=== PATIENT | male | born 1945 | race Caucasian/White ===

== ENCOUNTER 2017-07-24 20:14 | Outpatient (CLI) | payer OTHER | END 2017-07-24 20:15 | disposition short-term general hospital (02) | LOC: EMS 20:14 | PROVIDERS: ATTEND Surgery | DX: R41.0 Disorientation, unspecified (principal) | CPT/HCPCS: A0170; A0425; A0427 ==

== ENCOUNTER 2019-05-18 16:45 | Outpatient (CLI) | payer MEDICARE, OTHER ==
--- NOTE | 2019-05-19 13:07 | XRAY Report ---
Reason: DISORDER OF BONE Procedure Date: 05/18/2019 Accession Number: [id number] / [id number] Procedure: XR - Clavicle LT CPT Code: FULL RESULT: EXAM: LEFT CLAVICLE RADIOGRAPHY EXAM DATE: 05/18/2019 05:09 PM. CLINICAL HISTORY: DISORDER OF BONE. COMPARISON: None. TECHNIQUE: 2 views. FINDINGS: Bones: Normal. No fracture or bone lesion. Joints: The acromioclavicular and sternoclavicular joints are normal. No subluxation. Soft Tissues: Normal. No soft tissue swelling. IMPRESSION: Normal clavicle radiography. [facility]
== END 2019-05-18 18:00 ==
LOC: DI 16:45
PROVIDERS: ATTEND Family Medicine
DX: M89.9 Disorder of bone, unspecified (principal)

== ENCOUNTER 2021-11-11 12:15 | Outpatient (CLI) | payer MEDICARE, OTHER ==
--- NOTE | 2021-11-11 14:40 | XRAY Report ---
PROCEDURE: Shoulder 3 View RT INDICATIONS: PAIN IN RT SHOULDER TECHNIQUE: 3 views of the shoulder were acquired. COMPARISON: None. FINDINGS: FINDINGS: BONES: The joint spaces are maintained. Small ossific density adjacent to the inferior glenoid ri m. The remaining visualized osseous structures appear maintained. Mild osteophytosis about the AC alvaro nt. SOFT TISSUES: No focal abnormality or appreciable pneumothorax. IMPRESSION: 1.Small ossific density adjacent to the inferior glenoid rim, which may reflect intra-articular body or displaced fracture fragment. Reviewed by: Branden Randall MD on 11/11/2021 2:39 PM PST Approved by: Branden Randall MD on 11/11/2021 2:39 PM [facility] [place] Station ID: [id number]
== END 2021-11-11 12:16 | disposition home or self-care (01) ==
LOC: DI.S 12:15
PROVIDERS: ATTEND Physician Assistant
DX: M25.511 Pain in right shoulder (principal); R93.6 Abnormal findings on diagnostic imaging of limbs

== ENCOUNTER 2021-11-11 12:17 | Outpatient (CLI) | payer MEDICARE, OTHER ==
--- NOTE | 2021-11-12 10:06 | XRAY Report ---
PROCEDURE: Ribs w/PA Chest RT INDICATIONS: PLEURODYNIA TECHNIQUE: 3 views of the right ribs were acquired, along with a single view chest. COMPARISON: None. FINDINGS: Surgical changes and devices: None. Bones and chest wall: No fractures or dislocations. No suspicious bony lesions. A small ossicle ad jacent to the inferior glenoid rim. Overlying soft tissues appear unremarkable. Lungs and pleura: No pleural effusions or pneumothorax. Lungs appear clear. Mediastinum: Mediastinal contours appear normal. Heart size is normal. IMPRESSION: 1. No displaced rib fractures. 2. A small ossicle adjacent to the inferior glenoid rim. Please see separate right shoulder x-ray rep ort. Reviewed by: Nel Ernandez MD on 11/12/2021 10:05 AM [facility] Approved by: Nel Ernandez MD on 11/12/2021 10:05 AM [facility] Station ID: [id number]
== END 2021-11-11 12:18 | disposition home or self-care (01) ==
LOC: DI.S 12:17
PROVIDERS: ATTEND Physician Assistant
DX: R07.81 Pleurodynia (principal); R93.6 Abnormal findings on diagnostic imaging of limbs; M25.511 Pain in right shoulder

== ENCOUNTER 2021-11-25 11:29 | Outpatient (CLI) | payer MEDICARE, OTHER ==
[2021-11-25 15:33] LABS: CHOL/HDL RATIO 4.2 (<5.0); CHOLESTEROL 207 mg/dL; HDL CHOLESTEROL 49 mg/dL; LDL CHOLESTEROL,CALCULATED 138 mg/dL; LDL/HDL RATIO 2.8 (<3.6); TRIGLYCERIDES 101 mg/dL; VLDL CHOLESTEROL 20 mg/dL
== END 2021-11-25 11:30 | disposition home or self-care (01) ==
LOC: LAB.S 11:29
PROVIDERS: ATTEND Internal Medicine Cardiovascular Disease
DX: I48.92 Unspecified atrial flutter (principal); I48.0 Paroxysmal atrial fibrillation
CPT/HCPCS: 36415; 80061; 83721; 84443

== ENCOUNTER 2021-11-26 09:53 | Outpatient (CLI) | payer MEDICARE, OTHER ==
--- NOTE | 2021-11-26 12:19 | MRI Report ---
PROCEDURE: Shoulder RT W/O INDICATIONS: TRAUMATIC TEAR OF RIGHT ROTATOR CUFF TECHNIQUE: Noncontrast oblique coronal T2 fast spin echo with fat saturation, oblique sagittal T1 spin echo and T2 fast spin echo with fat saturation, axial T1 spin echo and T2 fast spin echo with fat saturation t hrough the shoulder. COMPARISON: None. Findings: Supraspinatus: Moderate tendinopathy with small partial articular surface and interstitial tears. Infraspinatus: Mild tendinopathy with small partial articular surface tear. Subscapularis: Moderate tendinopathy with full-thickness tear with retraction by approximately 2.9 cm . Teres minor: No evidence of tear. Labrum: No evidence of tear. Biceps tendon: No evidence of subluxation or tear. Acromioclavicular joint: Mild to moderate arthrosis with T2 hyperintense signal within the articulat ion. Muscle: No significant atrophy. Bones: T2 hyperintense/T1 hypointense signal within the humeral head with flattening, compatible Hill -Sachs deformity. Small focus of subchondral edema. Miscellaneous: Small to moderate glenohumeral joint effusion. Trace subacromial/subdeltoid bursal fluid. No intra-articular bodies. Intact coracoclavicular ligament. IMPRESSION: 1. Subscapular tendinopathy with full-thickness tear and retraction as detailed above. 2. Mild infraspinatus tendinopathy with small partial articular surface tear. 3. Moderate supraspinatus tendinopathy with small partial articular surface and interstitial tears. 4. Mild to moderate AC joint degeneration. 5. Small to moderate glenohumeral joint effusion. 6. Mild subacromial/subdeltoid bursitis. Reviewed by: Branden Randall MD on 11/26/2021 12:17 PM [facility] Approved by: Branden Randall MD on 11/26/2021 12:17 PM PST Station ID: [id number]
== END 2021-11-26 09:54 | disposition home or self-care (01) ==
LOC: DI 09:53
PROVIDERS: ATTEND Orthopaedic Surgery
DX: S46.011A Strain of muscle(s) and tendon(s) of the rotator cuff of right shoulder, initial encounter (principal); M19.011 Primary osteoarthritis, right shoulder; M75.51 Bursitis of right shoulder; M25.411 Effusion, right shoulder

== ENCOUNTER 2022-01-27 11:09 | Outpatient (CLI) | payer MEDICARE, OTHER ==
--- NOTE | 2022-01-27 12:17 | SLEEP CARE CONSULTATION ---
Information from patient questionnaire entered by Jimi Hobbs MA. I have reviewed and concur with the information entered by Jimi Hobbs MA. This document represents the service I personally performed and the decisions made by , Anali Serrato ARNP. History of Present Illness Service Date and Time: 01/27/2022 1109 Reason for Visit: New patient (ONSET 07/2021, NO PRIORS, ) Accompanied by: Spouse Chief Complaint: reports: Unrefreshed sleep (sometimes), Snoring, Excessive daytime sleepiness, Observed pauses in breathing, Frequent awakenings at night Date of Onset: APROX 1 YEAR Usual bedtime: 9 PM Time it takes to fall asleep: 10 MINUTES Snores at night: Yes Observed to quit breathing while asleep: Yes (possible) Sleeps alone due to snoring: No Number of times waking at night: 4 times Reasons for waking at night: reports: Pain (right shoulder since Nov 10), Other (pain in shoulder) Toss, Turn, or Twitch while sleeping: Yes Recalls having dreams: Yes (rarely) Usually gets out of bed at: 0900 avg - varies Feels refreshed in the morning: Yes (sometimes) Morning headache: No Sleepy or fatigued during the day: Yes (will stay awake if engaged mostly) Ever fallen asleep while driving: No Takes day naps: Yes (1-2 naps, daily; last 2-3 hours) Dreams during day naps: No Prior sleep studies: No Additional HPI information: I had the pleasure of seeing ADORE IYER today regarding the possibility of him having a sleep disorder. His current complaints are snoring, observed pauses in breathing, excessive daytime sleepiness, frequent night awakenings and unrefreshed sleep. The patient tells me that he normally goes to bed around 9 pm, and it takes him approximately 10 minutes to fall asleep. He has been told that he snores loudly and irregularly at night. He has been observed to stop breathing in his sleep. His bed partner can still sleep in the same bed. He can recall waking up on the average of 4 times during the night. Most of the time he wakes up because of right shoulder pain and bathroom. He has not awakened for his own snoring, choking, and having to gasp for air. There is a lot of tossing and turning in his sleep. Generally he can recall having dreams. He usually wakes up at 0900 and feels refreshed sometimes and other times he does not. He usually does not have a morning headache. During the day he complains of feeling sleepy and fatigued. He has never fallen asleep while driving nor has any accident due to sleepiness. He usually naps for about 2-3 hours 1-2 times a day. If he naps, upon falling asleep during the day he denies having vivid dreams. There is no somniloquy (sleep talking) or somnambulism (sleep walking). He has never experienced sleep paralysis, cataplexy, or symptoms of restless leg syndrome. He reports having impaired concentration during the day. - Parasomnia Symptoms Ever been unable to move upon waking from sleep: No Walks in sleep: No Talks in sleep: No Ever acted out dreams in sleep: No Ever felt weak in the knees when startled or emotional: No Bothered by creepy, crawly, restless sensations in legs: No Problems with memory or concentration: Yes (sometimes) Subjective Initial [place] Sleepiness Scale score: 8 (01/2022) Past Medical History Past Medical History: reports: Stroke (2016), Arrythmia (Atrial Fibrillation since 2014), Anxiety, Other (Right shoulder injury - torn rotator cuff, surgery [facility] February 11) Social History The patient's occupation is a RETIRED 2019. Patient is and lives in [place]. Have you smoked in the past 12 months: No Alcohol use: No Caffeine use: No Family History Family history of sleep disordered breathing: Yes Family Hx Sleep Apnea: Father: Snoring, Sleep apnea - Untreated Allergies and Home Medications Known drug allergies: No Drug allergies reviewed: Yes (NKDA) Home medication list reviewed: Yes Allergy and home medication list: Mediations: Amiodarone Pravastatin Eliquis Metoprolol Tylenol, prn pain Review of Systems Cardiovascular: reports: irregular heart rate or pulse (2 electroversions due to Afib) Neurological: reports: other (hypervigilant). denies: head trauma Ear/Nose/Throat: reports: nasal congestion (a little), dry mouth/throat (mouth breather), hoarseness, injury to nose (nose broken as a young adult) Endocrine: reports: too hot or cold (cold) Musculoskeletal: reports: back pain, muscle pain or cramping, other (torn rotator cuff) Immunologic: reports: allergies to food or environment (general allergies, seasonal to pollen) Physical Exam Vital signs obtained and entered by: LINDSAY BROUSSARD Blood Pressure: 145/78 (pulse 56, resp 18, left, ) Cuff size: wrist Heart Rate: 84 O2 Saturation: 98 (paper mask) Height: 6 ft 1.5 in Weight: 184 lb (with clothes and shoes) Body Mass Index: 23.9 BMI Classification: Healthy weight Neck circumference: 15 (inches) Mouth and throat: normal Soft palate: long Hard palate: normal Uvula: normal Uvula visualization: 100% Mallampati Class I Tongue: enlarged in size with teeth ramsay on lateral edges Tonsils: absent bilaterally Neck: normal w/o lymphadenopathy or thyromegaly Heart: regular rate and rhythm Lungs: clear bilaterally Impression and Plan 1. Suspected Obstructive Sleep Apnea-Hypopnea Syndrome, as suggested by a history of loud and irregular snoring, observed cessation of breath while asleep, unrefreshed sleep, cognitive impairment, and excessive daytime sleepiness. Narrow oropharynx and obesity are common predisposing factors for obstructive sleep apnea-hypopnea syndrome. I recommend proceeding to polysomnography to confirm the diagnosis and to assess severity. If the patient has significant sleep disordered breathing, a manual CPAP titration study will also be performed to find the optimal treatment pressure. I informed the patient of what the sleep studies involve and after some discussion, obtained agreement to proceed. The pathophysiology of obstructive sleep apnea-hypopnea syndrome was discussed with the patient and health risks of cardiovascular and cerebrovascular disease if not treated. Risks of drowsy driving discussed in detail and patient advised to avoid long distance driving and to tack puller machine at the first sign of drowsiness. Patient agreed to plan. Patient has shoulder surgery scheduled for Feb 11 2021. We will try to get t he sleep study done prior to this because he will have to sleep on a wedge (head elevated) and be limited by a shoulder immobilizer for several weeks after surgery which may affect his sleep study. * Schedule polysomnography +- manual CPAP titration study and return in 1-2 weeks after the study to discuss results. * Avoid long distance driving or driving when feeling sleepy. * Avoid alcohol, sedative and muscle relaxant around bedtime. * Review instructions provided by trained office staff on how to prepare for the sleep study. * Return for follow-up after sleep study completed. Counseling Topics: Weight control Visit Type: In Office Other Participants: Spouse/Significant Other Time Spent with Patient (minutes): 34 Provider Statement: I spent 100% of the Face to Face Visit with the patient with greater than 50% spent counseling the patient and coordination of care.
[2022-01-27 12:18] VITALS: BP 145/78
== END 2022-01-27 11:10 | disposition home or self-care (01) ==
LOC: SC 11:09
PROVIDERS: ATTEND Nurse Practitioner Family
DX: G47.10 Hypersomnia, unspecified (principal); R06.81 Apnea, not elsewhere classified; G47.8 Other sleep disorders; R41.89 Other symptoms and signs involving cognitive functions and awareness
CPT/HCPCS: 99203; G0463; 99212

== ENCOUNTER 2022-02-07 19:14 | Outpatient (CLI) | payer MEDICARE, OTHER | END 2022-02-07 19:15 | disposition home or self-care (01) | LOC: SC 19:14 | PROVIDERS: ATTEND Nurse Practitioner Family | DX: G47.33 Obstructive sleep apnea (adult) (pediatric) (principal); G47.61 Periodic limb movement disorder | CPT/HCPCS: 95810 ==

== ENCOUNTER 2022-02-20 15:58 | Outpatient (CLI) | payer MEDICARE, OTHER ==
[2022-02-20 15:50] VITALS: BP 120/60
--- NOTE | 2022-02-20 15:50 | SLEEP CARE CONSULTATION ---
Information from patient questionnaire entered by Jimi Hobbs MA. I have reviewed and concur with the information entered by Jimi Hobbs MA. This document represents the service I personally performed and the decisions made by , Anali Serrato ARNP. History of Present Illness Service Date and Time: 02/20/2022 1540 Accompanied by: Spouse (Na) Initial [place] Sleepiness Scale score: 8 (01/2022) Current [place] Sleepiness Scale score: 5 Additional HPI information: ADORE IYER returns via video telehealth visit for follow up and results of the recently performed polysomnography. I explained the pathophysiology behind obstructive sleep apnea. We then spent quite a bit of time discussing different treatment options. For mild obstructive sleep apnea, surgery and oral appliance are alternatives to nasal CPAP therapy but in moderate or severe cases, nasal CPAP is the most effective and reliable treatment. Because apnea is primarily in supine position, then positional management therapy could be effective. Methods discussed such as positioning with pillows to prevent supine sleep. I reviewed the impact of weight changes on sleep apnea and strongly recommended losing weight. After some discussion, the patient opted to go with the nasal CPAP therapy. Nasal autoCPAP set at 4-15 cmH20 will be ordered with rationale explained. A manual titration study will be ordered if unable to find optimal pressure with office adjustments. I explained how CPAP machine works and what to expect when using the machine. Using CPAP every night in order to get used to it was emphasized. Patient advised to put CPAP mask on before getting into bed so as not to fall asleep without CPAP. To assist acclimation to CPAP use, it could also be used for a short time during day while reading or watching TV. The patient was instructed to call the CPAP supplier to discuss any mechanical problem that may occur. If the mask given is uncomfortable or is difficult to keep on through the night even with adjustment, contact the CPAP supplier as many will replace with another mask style if notified before 30 days. If snoring or perceives is not getting enough air or too much air from the machine, notify this office. Patient does not drink alcohol. Patient was cautioned about risks of drowsy driving until sleepiness symptoms resolve. Sleep Study - Results Type of Sleep Study: Polysomnography (F/U POLY, 02/07/2022 [facility],) Prior sleep studies: No Polysomnography/Home Sleep Study results: IMPRESSION: The quality of the study is good. The patient had slightly reduced sleep efficiency due to frequent awakenings throughout the night. The sleep architecture was abnormal for sleep fragmentation and reduced amount of time spent in slow wave sleep (N3). Respiratory monitoring showed mild obstructive sleep apnea-hypopnea (AHI = 14.6) associated with frequent arousals, oxyhemoglobin desaturation and mild hypoxia (radha oxygen saturation of 82%). The patient only slept supine during this study (supine AHI = 14.6; non- supine = 0.00). Snore was light to moderate in intensity. There was moderate periodic leg movement of sleep contributing to the sleep fragmentation. Cardiac rhythm was normal sinus rhythm without significant arrhythmia. No abnormal behavior (parasomnia) observed during the night. Allergies and Home Medications Home medication list reviewed: Yes (no changes) Review of Systems Review of systems same as previous: Yes (February 11, surg repair of right rotator cuff) Physical Exam Vital signs obtained and entered by: Moshe HOBBS CMA AASAMRA Blood Pressure: 120/60 (per pt report) Height: 6 ft 1.5 in Weight: 185 lb Body Mass Index: 24.0 BMI Classification: Healthy weight Impression and Plan 1. Obstructive Sleep Apnea-Hypopnea Syndrome, moderate, with lowest oxygen saturation of 82%. Obviously this is the cause of the patients symptoms of unrefreshed sleep, and excessive daytime sleepiness. Positive pressure therapy could benefit cerebrovascular disease (stroke), anxiety and arrhythmia. As mentioned above, the patient will be started on nasal autoCPAP therapy with pressure set at 4-15 cmH2O. Compliance guidelines also reviewed. A copy of compliance guidelines will be given for reference at check out. 2. Periodic limb movement, moderate, that did contribute to fragmentation of patients sleep. Periodic limb movement of sleep (PLMS) is characterized by episodes of repetitive limb movements that occur during sleep and usually involve the lower limbs. The etiology is unknown but can be associated with restless leg syndrome (RLS), a low serum ferritin level, neuropathy, spinal cord diseases, kidney disease, rheumatological disorders, narcolepsy, obstructive sleep apnea, and REM sleep behavior disorder. Caffeine can also aggravate PLMS and should be avoided. Sleep hygiene methods can also improve sleep as well as lifestyle changes such as regular exercise. Patient was advised that no treatment is needed at this time. If symptoms increase, then further evaluation is indicated. * Nasal auto CPAP therapy, pressure at 4-15 cm H2O. * Attempt to lose weight. * Avoid alcohol consumption near bedtime. * Avoid supine sleep until using CPAP. * The patient is again cautioned about driving until sleepiness completely resolves. * Return one month after CPAP obtained. I will assess response to therapy and compliance at that time. Counseling Topics: Weight loss health impact Visit Type: Telehealth Video ([phone] HOME CALL 1520,) Video Type: Doximity Patient Location: Home Other Participants: Spouse/Significant Other (Na) Location of Provider: Office Patient agrees and consents to this telehealth visit type: Yes Patient agrees to have their insurance billed: Yes Time Spent with Patient (minutes): 20 Provider Statement: I spent 100% of the Telehealth Video Call with the patient with greater than 50% spent counseling the patient and coordination of care.
== END 2022-02-20 15:59 | disposition home or self-care (01) ==
LOC: SC 15:58
PROVIDERS: ATTEND Nurse Practitioner Family
DX: G47.33 Obstructive sleep apnea (adult) (pediatric) (principal); G47.61 Periodic limb movement disorder

== ENCOUNTER 2022-05-08 13:47 | Outpatient (CLI) | payer MEDICARE, OTHER ==
[2022-05-08 14:26] VITALS: BP 128/79
--- NOTE | 2022-05-08 14:26 | SLEEP CARE CONSULTATION ---
Information from patient questionnaire entered by Jimi Hobbs MA. I have reviewed and concur with the information entered by Jimi Hobbs MA. This document represents the service I personally performed and the decisions made by , Anali Serrato ARNP. History of Present Illness Service Date and Time: 05/08/2022 1347 Previous diagnosis: Mild, Obstructive Sleep Apnea-Hypopnea Syndrome AHI: 14.6 Reason for follow up: three month (LAST SEEN 02/2022, ZIGGY, DOMINGUEZ 03/13/2022, ) Accompanied by: Spouse Equipment type: CPAP Equipment obtained from: [employer] (got initial supplies) Mask style: Nasal Mask brand: Resmed (Airfit [id number]) Backup mask available: Yes (will keep old mask when replaced) Prior sleep studies: No Type of Sleep Study: Polysomnography (F/U POLY, 02/07/2022 [facility],) HPI additional information: ADORE IYER was diagnosed to have mild, AHI 14.6, obstructive sleep apnea- hypopnea syndrome and returned with spouse today for CPAP therapy first compliance three month follow-up. Sleep Study - Results Type of Sleep Study: Polysomnography (F/U POLY, 02/07/2022 [facility],) Prior sleep studies: No CPAP Compliance Data - Data Reviewed with Patient Average duration of nightly device use: 2 hours 16 minutes Compliance rate %: 3 (30 days; 10/09 days used) Current pressure setting (cmH2O): 4-15 (median 6.7, avg 10.4, max 11.1) Average residual AHI: 4.6 Central apnea: 2.4 Obstructive apnea: 1.2 Hypopnea: .8 Average large leak: 1.4 Subjective Missed days of use due to: reports: mask issues (full face not comfortable; waiting for chin strap) Patient concerns: reports: mask discomfort, mask leak noise. denies: a erophagia, air blowing in eyes, condensation in mask/hose, nasal congestion, dry mouth, nose, throat, epistaxis, other Observed to snore while using device: No Current pressure setting perceived as: comfortable On therapy, patient: reports: other (feels like it is waking him up at night) Initial [place] Sleepiness Scale score: 8 (01/2022) Current [place] Sleepiness Scale score: 5 (05/08/2022) Allergies and Home Medications Home medication list reviewed: Yes (no changes) Review of Systems Review of systems same as previous: Yes (no changes) Physical Exam Vital signs obtained and entered by: LINDSAY BROUSSARD Blood Pressure: 128/79 (LEFT) Cuff size: wrist Heart Rate: 49 O2 Saturation: 98 (PAPER MASK) Height: 6 ft 1.5 in Weight: 183 lb 8 oz (CLOTHES) Body Mass Index: 23.8 BMI Classification: Healthy weight Impression and Plan 1. Obstructive Sleep Apnea-Hypopnea Syndrome, mild, with poor treatment compliance and good apnea control. On CPAP therapy, the patient has better sleep quality and is more rested overall. He will wake up several times a night to adjust mask on his face. He states he does not know if he can tolerate the CPAP but does like the new nasal cushion mask that he bought online better than the fullface he started with. The patients pressure will be changed to autoCPAP 8- 12 cmH20 to reflect pressure being used. Patient advised to contact me if pressure change is uncomfortable so that it can be adjusted. Goals for apnea control discussed. Patient's apnea severity and rationale for treatment to reduce apnea, improve sleep quality and reduce cardiovascular and cerebrovascular events was reviewed. I also reviewed the benefit of consistent device use of CPAP for cerebrovascular disease (stroke), arrhythmia and anxiety. After some discussion, patient asked to explain his sleep study and he and his like to the sound of the oral appliance over using the CPAP. They would like a prescription so that they can look into this but he wants to continue using the CPAP until they get this figured out.I will write a prescription for the oral appliance. He will continue to use his CPAP. I we will have him follow-up in 1 to 2 months for the pressure change. * Oral appliance * Change auto CPAP pressure to 8-12 cmH2O * Notify me if snoring with mask or feeling that the pressure is too much or too little * Call this office if any problems using CPAP * Return for follow up in 1-2 months, or sooner if concerns arise Counseling Topics: Spare mask Visit Type: In Office Other Participants: Spouse/Significant Other Time Spent with Patient (minutes): 25 Provider Statement: I spent 100% of the Face to Face Visit with the patient with greater than 50% spent counseling the patient and coordination of care.
== END 2022-05-08 13:48 | disposition home or self-care (01) ==
LOC: SC 13:47
PROVIDERS: ATTEND Nurse Practitioner Family
DX: G47.33 Obstructive sleep apnea (adult) (pediatric) (principal)
CPT/HCPCS: 99213; G0463; 99212

== ENCOUNTER 2022-11-26 07:54 | Outpatient (CLI) | payer MEDICARE, OTHER | END 2022-11-26 07:55 | disposition critical access hospital (66) | LOC: EMS 07:54 | DX: R55 Syncope and collapse (principal); R00.1 Bradycardia, unspecified | CPT/HCPCS: A0425; A0429 ==

== ENCOUNTER 2022-11-26 08:29 | Emergency (ER) | payer MEDICARE, OTHER ==
[2022-11-26] MEDS ORDERED: SODIUM CHLORIDE 0.9% 1,000 ML IV STA (08:49)
--- NOTE | 2022-11-26 08:52 | ED Physician Documentation ---
PD HPI SYNCOPE - Stated complaint Stated Complaint: NEAR SYNCOPE - Chief complaint Chief Complaint: Neuro - History obtained from History obtained from: Patient, Family - History of Present Illness Witnessed: Witnessed Timing - onset: Today Duration: Seconds Preceding symptoms: Diaphoresis, Light headed, Generalized weakness Associated symptoms: Diaphoresis. No: Seizure, Incontinant of urine, Incontinant of stool, Chest pain, Palpitations, Dyspnea, Abdominal pain Contributing factors: Recent med change Treatment EXPANDER: Cardiac meds (took metoprolol) Similar symptoms before: Has not had sx before Recently seen: Not recently seen - Additional information Additional information: 77-year-old male with a history of prior atrial fibrillation has not had an epi sode in the past year. He was at home last night his checked his pulse as she normally does and found it to be in the 80s. The patient's pulse is usually in the 50s and upper 40s. She became concerned and asked him to take a quarter of a metoprolol tablet. He took an entire tablet. This morning when he awoke he was feeling lightheaded and dizzy when he was trying to get up and about. Th e is brought him here to the emergency department for evaluation. The patient had discontinued the use of metoprolol over a year ago when he had intolerance. He had heart rate in the 40s and his medication was discontinued entirely. Review of Systems Constitutional: reports: Sweats. denies: Fever Eyes: denies: Decreased vision Ears: denies: Ear pain Nose: denies: Rhinorrhea / runny nose, Congestion Throat: denies: Sore throat Cardiac: reports: Palpitations. denies: Chest pain / pressure Respiratory: denies: Dyspnea, Cough GI: denies: Abdominal Pain, Nausea, Vomiting, Constipation, Diarrhea : denies: Dysuria, Frequency PD PAST MEDICAL HISTORY - Present Medications Home Medications: Ambulatory Orders Medication Instructions Recorded Confirmed Amiodarone [Pacerone] 200 mg PO DAILY 11/26/22 11/26/22 Apixaban [Eliquis] 5 mg PO DAILY 11/26/22 11/26/22 Sertraline [Zoloft] 25 mg PO DAILY 11/26/22 11/26/22 busPIRone [Buspar] 10 mg PO DAILY 11/26/22 11/26/22 - Allergies Allergies/Adverse Reactions: Allergies Allergy/AdvReac Type Severity Reaction Status Date / Time No Known Drug Allergies Allergy Verified 11/26/22 09:41 PD ED PE NORMAL - Vitals Vital signs reviewed: Yes (hypertensive and bradycardic) - General General: Alert and oriented X 3, No acute distress, Well developed/nourished - HEENT HEENT: Atraumatic, PERRL, EOMI - Neck Neck: Supple, no meningeal sign, No bony TTP - Cardiac Cardiac: RRR, No murmur - Respiratory Respiratory: No respiratory distress, Clear bilaterally - Abdomen Abdomen: Normal bowel sounds, Soft, Non tender, Non distended, No organomegaly - Back Back: No CVA TTP, No spinal TTP - Derm Derm: Normal color, Warm and dry, No rash - Extremities Extremities: No deformity, No edema - Neuro Neuro: Alert and oriented X 3, correctional officer 2-12 intact, No motor deficit, No sensory deficit, Normal speech Eye Opening: Spontaneous Motor: Obeys Commands Verbal: Oriented GCS Score: 15 - Psych Psych: Normal mood, Normal affect Results - Vitals Vitals: Vital Signs - 24 hr 11/26/22 11/26/22 11/26/22 08:43 09:43 10:02 Temperature 36.7 C Heart Rate 47 L 47 L 50 L Respiratory 19 15 15 Rate Blood Pressure 134/73 H 123/67 124/77 O2 Saturation 100 100 99 Oxygen O2 Source Room air - EKG (time done) 0859 Rate: Rate (enter#) (47) Rhythm: Sinus bradycardia Intervals: Prolonged SD Ischemia: Q waves Compare to prior EKG: Unchanged from prior EKG (SPT 07-24-17 no changes ) Computer interpretation: Agree with computer - Labs Labs: Laboratory Tests 11/26/22 11/26/22 11/26/22 08:49 08:57 08:57 WBC 7.9 RBC 4.41 L Hgb 14.1 Hct 42.9 MCV 97.3 H MCH 32.0 H MCHC 32.9 RDW 12.8 Plt Count 227 MPV 9.4 Neut # (Auto) 5.6 Lymph # (Auto) 1.5 Jessamine # (Auto) 0.6 Eos # (Auto) 0.0 Baso # (Auto) 0.0 Absolute Nucleated RBC 0.00 Nucleated RBC % 0.0 Sodium 139 Potassium 3.7 Chloride 105 Carbon Dioxide 27 Anion Gap 7.0 BUN 24 H Creatinine 1.1 Estimated GFR (MDRD) 65 L Glucose 116 H Calcium 8.5 Magnesium 2.2 Total Bilirubin 0.6 AST 23 ALT 26 Alkaline Phosphatase 25 L Troponin I High Sens 10.1 Total Protein 5.8 L Albumin 3.4 Globulin 2.4 Albumin/Globulin Ratio 1.4 Lipase 39 TSH 11/26/22 08:57 WBC RBC Hgb Hct MCV MCH MCHC RDW Plt Count MPV Neut # (Auto) Lymph # (Auto) Jessamine # (Auto) Eos # (Auto) Baso # (Auto) Absolute Nucleated RBC Nucleated RBC % Sodium Potassium Chloride Carbon Dioxide Anion Gap BUN Creatinine Estimated GFR (MDRD) Glucose Calcium Magnesium Total Bilirubin AST ALT Alkaline Phosphatase Troponin I High Sens Total Protein Albumin Globulin Albumin/Globulin Ratio Lipase TSH 3.26 Procedures - IVC sono (time) 0846 Bedside IVC sono: IVC measures (cm) (1.08), Dehydration (est 1 + liter deficit) PD Medical Decision Making - ED course Complexity details: reviewed results, re-evaluated patient, considered differential, d/w patient, d/w family Reviewed Lab Results: We reviewed complete blood count with a normal white blood cell count normal hemoglobin hematocrit and normal platelets. Reviewed chemistry panel with normal electrolytes the BUN was elevated at 24 consistent with a level of dehydration discovered on interrogation of the inferior vena cava. The remainder of the laboratory tests were unremarkable including a high-sensitivity troponin. ED course: 77-year-old Cyrus White is evaluated in the emergency department after taking a full metoprolol tablet last night and feeling lightheaded and dizzy this morning. He is found to have mild volume depletion and is administered intravenous saline. He is asymptomatic at discharge. The patient had previously discontinued the use of metoprolol secondary to bradycardia. I suspect he had minimal volume depletion at the time his recorded his heart rate is rapid and he took more metoprolol than intended. At the time of discharge there is no suspected abnormality. We did not discover a specific reason for the level of dehydration found. Departure - Departure Disposition: 01 Home, Self Care Clinical Impression: Dehydration, Near syncope Condition: Stable Instructions: ED Dehydration, ED Near Syncope Vasovagal Follow-Up: Fam Chiu MD [Primary Care Provider] - Kamron Ruiz MD [Physician No Access] - Comments: Cyrus today we found that you were dehydrated when we looked at your inferior vena cava with the bedside ultrasound. I am postulating that this is the reason your heart rate was rapid last night and with control of your heart rate with metoprolol you became symptomatic when you were unable to compensate. Today we have provided a liter of saline intravenously. Discharge Date/Time: 11/26/22 10:24
[2022-11-26 09:02] LABS: BASOPHILS % (AUTO) 0.5 %; EOSINOPHILS % (AUTO) 0.3 %; HCT - HEMATOCRIT 42.9 % (42.0-52.0); HGB - HEMOGLOBIN 14.1 g/dL (14.0-18.0); LYMPHOCYTES # (AUTO) 1.5 10^3/uL (1.5-3.5); LYMPHOCYTES % (AUTO) 19.3 %; MEAN CORPUSCULAR HGB CONC 32.9 g/dL (32.0-36.0); MEAN CORPUSCULAR VOLUME 97.3 fL (80.0-94.0); MEAN PLATELET VOLUME 9.4 fL (7.4-11.4); MONOCYTES # (AUTO) 0.6 10^3/uL (0.0-1.0); MONOCYTES % (AUTO) 8.1 %; NEUTROPHILS # (AUTO) 5.6 10^3/uL (1.5-6.6); NEUTROPHILS % (AUTO) 71.3 %; PLT - PLATELET COUNT 227 10^3/uL (130-450); RED BLOOD COUNT 4.41 10^6/uL (4.70-6.10); RED CELL DISTRIBUTION WIDTH 12.8 % (12.0-15.0); WHITE BLOOD COUNT 7.9 x10^3/uL (4.8-10.8)
[2022-11-26 09:42] LABS: ALBUMIN 3.4 g/dL (3.2-5.5); ALBUMIN/GLOBULIN RATIO 1.4 (1.0-2.2); BILIRUBIN,TOTAL 0.6 mg/dL (0.2-1.0); CALCIUM 8.5 mg/dL (8.5-10.3); CREATININE 1.1 mg/dL (0.6-1.2); MAGNESIUM 2.2 mg/dL (1.7-2.8); POTASSIUM 3.7 mmol/L (3.5-5.0); TOTAL PROTEIN 5.8 g/dL (6.7-8.2)
[2022-11-26 10:04] VITALS: BP 124/77
== END 2022-11-26 10:24 | disposition home or self-care (01) ==
LOC: EDUNIT# → ED 08:29
DX: E86.0 Dehydration (principal); R55 Syncope and collapse
CPT/HCPCS: 36415; 80053; 83690; 83735; 84443; 84484; 85025; 93005; 96360; 99284